=== PATIENT | male | born 1935 | race Two or more races ===

== ENCOUNTER 2022-02-14 20:00 | Emergency (ER) | payer MEDICARE, MEDICAID ==
[2022-02-15 20:34] LABS: SARS-CoV-2 PCR by NAA DETECTED (NotDetected)
== END 2022-02-14 20:56 | disposition home or self-care (01) ==
LOC: NAV ERS 20:00
DX: U07.1 COVID-19 (principal); J06.9 Acute upper respiratory infection, unspecified; I10 Essential (primary) hypertension; E11.9 Type 2 diabetes mellitus without complications; E03.9 Hypothyroidism, unspecified; H26.9 Unspecified cataract; Z79.84 Long term (current) use of oral hypoglycemic drugs; Z79.899 Other long term (current) drug therapy
CPT/HCPCS: 87804 ×2; 99283; U0003; U0005

== ENCOUNTER 2024-08-07 09:49 | Emergency (ER) | payer MEDICARE, MEDICAID ==
[2024-08-07] MEDS ORDERED: Acetaminophen 500 MG TAB ONE (11:01)
[2024-08-07] MEDS ORDERED: Ketorolac Tromethamine 30 MG (1 mL) VIAL ONE (11:02)
== END 2024-08-07 11:37 | disposition home or self-care (01) ==
LOC: NAV ERS 09:49
DX: S20.212A Contusion of left front wall of thorax, initial encounter (principal); E11.9 Type 2 diabetes mellitus without complications; E78.5 Hyperlipidemia, unspecified; I10 Essential (primary) hypertension; W01.0XXA Fall on same level from slipping, tripping and stumbling without subsequent striking against object, initial encounter
CPT/HCPCS: 71046; J1885; 96372